=== PATIENT | male | born 1965 | race African-American/Black ===

== ENCOUNTER 2016-11-02 17:41 | Inpatient (IN) ==
[2016-11-02] MEDS ORDERED: ZOFRAN IV PRN (20:45)
[2016-11-02] MEDS ORDERED: VANCOMYCIN IV PER PHARMACY MISC SCH (21:00)
--- NOTE | 2016-11-02 21:24 | HISTORY AND PHYSICAL ---
PRIMARY CARE PHYSICIAN: None. PRIMARY GENERAL SURGEON: Remedios Ruano MD. CHIEF COMPLAINT: Patient was sent for direct admission for a right leg cellulitis. HISTORY OF PRESENT ILLNESS: This is a 51-year-old male with history diabetes, hypertension, and obesity who was sent as a direct admission by Dr. Remedios Ruano. Apparently patient started having a recurrence of this right leg cellulitis that started approximately 2-3 weeks ago and he was coming to the ER for checking it and last visit on 2016 he was recommended to see a surgeon. Dr. Ruano has seen this patient and he considered it necessary to admit this patient to the hospital. The patient denies any fever or chills. Patient reports that regarding diabetes and hypertension, he has not taken any medication for both conditions because he does not have a primary care physician, so basically he is not getting any treatment for those. Patient admitted for further evaluation and treatment. PAST MEDICAL HISTORY: 1. Diabetes mellitus type 2, untreated. 2. Hypertension. untreated 3. Morbid obesity. 4. Previous history of cellulitis to the same extremity and he has been seen 1 year ago here by Dr. Kimball. FAMILY HISTORY: Positive for hypertension, CVA, colon cancer, and heart attack. SOCIAL HISTORY: Patient is single. Lives with a roommate. He denies using illicit drugs, smoking tobacco, and he drinks alcohol socially. He works at [employer] here in [place]. ALLERGIES: He denies any allergies. MEDICATIONS: As mentioned before, he is not taking any medications for both chronic conditions mentioned above. REVIEW OF SYSTEMS: Eleven systems were reviewed and all symptoms are related to HPI. DISCHARGE PHYSICAL EXAMINATION: Vitals: Temperature 97.7 degrees, heart rate 90, respiratory rate 16, blood pressure 180/96, O2 saturation 100% on room air. General: This is a 51-year-old male, morbidly obese with BMI of 40.7 lying in bed, in no acute distress. HEENT: Head is normocephalic, atraumatic. Anicteric sclerae and pale conjunctivae. Mucous membranes moist. Neck: Supple. No JVD noted. No carotid bruits. No lymphadenopathy. No thyromegaly. Cardiovascular: S1, S2 heard. No murmurs, gallops, or rubs. Regular rate and rhythm. Respiratory: Clear bilaterally to auscultation. No work of breathing or using accessory muscles. Abdomen: Soft, nondistended, nontender to palpation. Bowel sounds present. No organomegaly. Extremities: There is no pitting edema on the left extremity but the right is markedly swollen with a wound covered by dressing. Peripheral pulses present in both legs. Neurological: Patient alert and oriented x3. Able to move 4 extremities. Cranial nerves II through XII grossly normal. LABORATORY DATA: Pending at time of dictation. ASSESSMENT AND PLAN: 1. Cellulitis of the right lower extremity. Patient will be started on vancomycin per pharmacy and Zosyn. Of course, we are going to readjust the doses of the medication according to the BMP and renal function. Dr. Tree Pena from Infectious Disease will be consulted. Also, Dr. Ruano sent this patient to the hospital. Apparently he is planning to do a surgical cleaning tomorrow. We will follow the recommendations. 2. Diabetes mellitus. That condition is untreated. We are going to check hemoglobin A1c and lipid panel and will treat this with the sliding scale insulin. 3. Hypertension. Blood pressure is not being treated. Patient's blood pressure on admission was 180 so we are going to start lisinopril 20 mg p.o. daily. I will also use hydralazine just in case blood pressure is 200 and above. 4. Right leg swelling. Of course this is because of cellulitis but just to check that this patient is not developing any blood clot, we are going to do a Doppler ultrasound. 5. Further recommendations to follow according to the clinical situation of the patient. cc: MD Flavio Najera MD MTDD
[2016-11-02 21:48] LABS: BASO% 0.4 % (0.0-0.8); EOS# 0.17 X1000 (0.0-0.7); EOS% 1.8 % (0.0-10.0); HEMATOCRIT 39.5 % (42.0-52.0); HEMOGLOBIN 12.2 g/dL (14.0-18.0); LYMPH# 2.61 X1000 (1.2-3.4); LYMPH% 27.7 % (20.5-51.1); MANUAL DIFF NEEDED? YES; MCH 23.6 PG (27-31); MCHC 30.9 g/dL (33-37); MCV 76.4 FL (81-99); MONO# 1.21 X1000 (0.11-0.59); MONO% 12.9 % (1.7-9.3); MPV 8.6 FL (7.4-10.4); NEUT% 57.2 % (42.2-75.2); PLT 459 X1000 (130-400); RBC 5.17 XMIL (4.7-6.1)
[2016-11-02 21:52] LABS: HEMOGLOBIN A1C 6.3 % (4.8-6.0)
[2016-11-02] MEDS ORDERED: VANCOMYCIN 2,000 MG in NS 500 ML IV ONE (22:00)
[2016-11-02 22:05] LABS: BASO 1 % (0-1); EOS 2 % (1-10); LYMPHS 27 % (21-51); MONO 13 % (1-9)
[2016-11-02] MEDS: PRINIVIL PO SCH (22:35)
[2016-11-02] MEDS: LOVENOX SUBQ SCH (22:36)
[2016-11-02] MEDS: NS 1,000 ML IV SCH (22:36)
[2016-11-02] MEDS: NORCO-5 PO PRN (22:36)
[2016-11-02] MEDS: ZOSYN 3.375 GM/NS 3.375 GM/50 ML IVPB IV SCH (22:37)
[2016-11-02 22:57] LABS: AGAP 12; BUN 17 mg/dL (8-22); CALCIUM 9.3 mg/dL (8.8-10.2); CHLORIDE 101 mmol/L (98-107); COSMO 277; POTASSIUM 4.2 mmol/L (3.5-5.1); SODIUM 138 mmol/L (136-145); TCO2 25 mmol/L (25-35)
[2016-11-02 23:15] LABS: ALBUMIN 3.5 g/dL (3.5-5.0); ALKALINE PHOSPHATASE 102 U/L (32-122); DIRECT BILIRUBIN < 0.20 mg/dL (0.00-0.20); GOT 17 U/L (10-34); GPT 20 U/L (10-44); TOTAL BILIRUBIN 0.26 mg/dL (0.20-1.00); TOTAL PROTEIN 7.9 g/dL (6.3-8.3)
[2016-11-02] MEDS: HUMALOG SUBQ SCH (23:15)
[2016-11-03] MEDS: ZOSYN 3.375 GM/NS 3.375 GM/50 ML IVPB IV SCH (03:38)
[2016-11-03] MEDS: HUMALOG SUBQ SCH ×4 (06:31→20:07)
[2016-11-03] MEDS: NORCO-5 PO PRN ×2 (06:45→23:47)
[2016-11-03 06:54] LABS: MANUAL DIFF NEEDED? NO
[2016-11-03 07:02] LABS: BASO% 0.4 % (0.0-0.8); EOS# 0.16 X1000 (0.0-0.7); EOS% 2.4 % (0.0-10.0); HEMOGLOBIN 11.7 g/dL (14.0-18.0); IMM GRAN# 0.02 X1000 (0.0-0.04); IMM GRAN% 0.3 % (0.0-0.5); LYMPH# 1.86 X1000 (1.2-3.4); LYMPH% 27.8 % (20.5-51.1); MCH 23.4 PG (27-31); MCHC 30.8 g/dL (33-37); MONO# 0.85 X1000 (0.11-0.59); MONO% 12.7 % (1.7-9.3); MPV 9.1 FL (7.4-10.4); NEUT% 56.4 % (42.2-75.2); PLT 448 X1000 (130-400)
[2016-11-03 07:17] LABS: AGAP 12; BUN 15 mg/dL (8-22); CALCIUM 8.7 mg/dL (8.8-10.2); CHLORIDE 103 mmol/L (98-107); COSMO 280; HDL 27 mg/dL (35-55); LDL 129 mg/dL; POTASSIUM 4.1 mmol/L (3.5-5.1); SODIUM 140 mmol/L (136-145); TCO2 25 mmol/L (25-35); TRIGLYCERIDES 111 mg/dL (39-160); VLDL 22 mg/dL
--- NOTE | 2016-11-03 07:37 | CONSULTATION ---
DATE OF CONSULTATION: 11/03/2016 CONCLUSION: The patient is admitted the hospital. He has a right leg cellulitis. Also, he appears on the right leg to have had an abscess in view of the fact that he told me that the right leg swelled and then it spontaneously drained sanguinopurulent fluid. RECOMMENDATIONS: I agree with putting the patient on vancomycin. I have substituted cefepime for Zosyn. Also, where the patient had fluid that came from his leg, I stuck a swab into that area. It went fairly deep into the leg but no where near the bone. I have sent the specimen for Gram stain and culture. DISCUSSION: This middle-aged gentleman, about 2-3 weeks ago, developed progressive swelling and erythema in his right leg, and 2-3 days ago the area spontaneously drained sanguinopurulent fluid. The patient has not been having fever or chills. He does not remember having any trauma to the right leg. PAST MEDICAL HISTORY/REVIEW OF SYSTEMS: Eyes and Ears: He denies difficulty hearing or seeing. Neck: No stiffness. Respiratory: No cough or shortness of breath. Cardiovascular: No chest pain or palpitations. GI: No nausea, vomiting, or diarrhea. Genitourinary: No dysuria or flank pain. Neurologic: No seizures. No motor or sensory loss. Bones, joints, muscles: See present illness. The remainder of the patient's review of systems was complete and was negative. PREVIOUS HOSPITALIZATIONS AND OPERATIONS: He has only been admitted for cellulitis of the right leg in the past. MEDICAL DISEASES: Positive for diabetes mellitus, hypertension, morbid obesity. INFECTIOUS DISEASE HISTORY: Positive for leg cellulitis. LABORATORY DATA AND X-RAY STUDIES: The patient's CBC shows a white count of 9410, hemoglobin 12.2, and platelet count 459,000. Creatinine is 1. GFR is greater than 60. Liver function studies are normal. FAMILY HISTORY: Positive for hypertension, stroke, colon cancer, and myocardial infarction. SOCIAL HISTORY: The patient is single. [place] He lives with a roommate. The patient denies using illicit drugs. He does not smoke, and he rarely drinks alcoholic beverages. He works at [employer]. ALLERGIES: He has no known drug allergies. MEDICATIONS: According to the chart, he is not taking any medicines at home. PHYSICAL EXAMINATION: VITAL SIGNS: Temperature is 98.4 degrees, pulse 78, respirations 16, blood pressure 179/95. GENERAL: This is an obese, middle-aged male who is in no acute distress. HEAD, EYES, EARS, NOSE, AND THROAT: He can hear my spoken words and see near objects. No drainage noted from the nose or ears. NECK: No meningismus. LUNGS clear to auscultation. CARDIOVASCULAR: Heart rate is regular. ABDOMEN soft and nontender. NEUROLOGIC: The patient move his extremities. There is no tremor. His sensation is intact to touch. His memory as regarding his medical history appears to be intact. Thank you for the consult. cc: MD Flavio Lord MD
[2016-11-03] MEDS ORDERED: VANCOMYCIN IV PER PHARMACY MISC SCH (08:00)
[2016-11-03] MEDS: PRINIVIL PO SCH (08:41)
[2016-11-03] MEDS: PRILOSEC PO SCH (08:41)
[2016-11-03] MEDS: MAXIPIME 2 GM/NS 2 GM/100 ML IVPB IV SCH ×2 (08:44→20:08)
--- NOTE | 2016-11-03 08:57 | Diag Imaging Result Document ---
PROCEDURE NAME: LOWER LEG-RIGHT - 11/03/2016 PLAIN RADIOGRAPH OF THE RIGHT LOWER LEG 4 VIEWS: COMPARISON: Right ankle radiograph dated 07/18/2014. FINDINGS: There is extensive degenerative arthropathy involving the knee with loss of joint space height and marginal osteophyte formation, most significant at the medial compartment. Otherwise, there is no discrete fracture, dislocation, or intrinsic osseous lesion. There is diffuse soft- tissue edema around the lower leg. IMPRESSION: 1. Degenerative arthropathy but no evidence of acute osseous abnormality. 2. Diffuse soft-tissue edema around the lower leg.
[2016-11-03] MEDS ORDERED: ZYVOX PO SCH (09:00)
--- NOTE | 2016-11-03 09:00 | PROGRESS NOTE ---
DATE: 11/03/2016 SUBJECTIVE: This patient is known to me, was seen in my clinic yesterday for a chronic, nonhealing wound. Concerned with infection of the right lateral leg. He has had multiple similar wounds on the right leg in the past. He has been in the ER multiple times and failed oral antibiotic regimens and has a persistent bleeding open wound of his right lateral leg. He has had venous ultrasounds x2 that have shown no clot in this leg, but the leg has chronic venous insufficiency and lymphedema type changes here. He was admitted to medicine service last night for medical optimization with antibiotics and plans for debridement today. PAST MEDICAL HISTORY: Diabetes. He has hypertension, obesity. PAST SURGICAL HISTORY: He has had multiple debridement's of the right lower extremity. MEDICATIONS: Negative for anticoagulants. Does not really see a doctor and does not really take anything for his diabetes. SOCIAL HISTORY: Occasional alcohol. No tobacco. Works at [employer]. PHYSICAL EXAM: Vital Signs: Temperature is 98.6, pulse 69, blood pressure 171/105, oxygen saturation 97% on room air. General: He is alert, no acute distress. HEENT: There is no scleral icterus. Abdomen: Soft, nontender. Extremities: Right lateral leg dressing is clean, dry, and intact. Yesterday, at office, there was a bleeding, open wound with some surrounding fluctuance and erythema, and chronic venous stasis, woody changes to his leg. LABS: Reviewed. White count had been normal at 6, hematocrit 28, platelets are 448. Creatinine 0.8, glucose is 99. Lower extremity x-ray shows the wound, but does not show any bony changes. HELEN showed normal ABIs greater than 1 bilaterally, normal wave forms. ASSESSMENT AND PLAN: This is a 41-year-old, obese, diabetic male. Has chronic venous insufficiency changes of right lower extremity and then chronic wound. He needs debridement of this wound to facilitate wound healing. We discussed risks, benefits, alternatives. He consents. There is a plan to go to the operating room today. Dr. Pena of Infectious Disease is following. He is on adequate antibiotics. Medically seems optimized as far as this goes. I suspect this is an evolving venous stasis type ulcer and will ultimately need Unna boot therapy pending today's findings, but will debride today as a first step in management of this. Continue to follow along. cc: Remedios Ruano MD
[2016-11-03] MEDS: VANCOMYCIN 2,000 MG in NS 500 ML IV SCH ×2 (10:19→23:47)
[2016-11-03] MEDS ORDERED: VANCOMYCIN 2,000 MG in NS 500 ML IV SCH (11:00)
--- NOTE | 2016-11-03 11:51 | PROGRESS NOTE ---
DATE: 11/03/2016 SUBJECTIVE: Mr. Alexandre is a 51-year-old who was admitted I believe for infected soft tissue of the right lower extremity with cellulitis and it will need some debridement, thought to have an abscess and the fact his right leg is swelling, spontaneously drained some serosanguineous fluid so the plan is for debridement. He is on vancomycin, substituted cefepime for Zosyn. He seems to be comfortable. He is a little bit sleepy. He said that he had not slept much this morning. PHYSICAL EXAMINATION: Vital Signs: Temperature 97.3 degrees, pulse 75, respirations 19, blood pressure 182/108. Blood pressure had been running a little bit high so we maybe make some adjustments. Lungs: Clear in all lung mccormack. Cardiovascular Examination: Regular rhythm and rate without murmur or S3. Abdomen: Soft. Skin: Is warm and dry. LAB: Work when he came in, white count 6690, hematocrit 38, platelet count 448,000. Sodium 140, potassium 4.1, chloride 103, bicarb 25, BUN 15, creatinine 0.8. Liver functions unremarkable. Lower extremity x-ray. ASSESSMENT AND PLAN: 1. Lower extremity soft tissue infection, nonhealing wound of right lateral lower leg, for debridement. He is on cefepime and vancomycin I believe at the present time. 2. We will follow his blood sugars. Hemoglobin A1c level was 6.3. Blood sugars have been 99 and 134. 3. Other comorbidities, has diabetes, has hypertension, morbid obesity. cc: Kali Rodney MD
[2016-11-03] MEDS ORDERED: FENTANYL ONE (13:00)
[2016-11-03] MEDS ORDERED: DIPRIVAN 1% ONE (13:00)
[2016-11-03] MEDS: DILAUDID ONE ×5 (13:19→13:58)
[2016-11-03] MEDS ORDERED: XYLOCAINE-MPF 2% ONE (13:29)
--- NOTE | 2016-11-03 13:38 | OPERATIVE NOTE ---
PROCEDURE DATE: 11/03/2016 PREOPERATIVE DIAGNOSIS: Right lateral lower leg wound. POSTOPERATIVE DIAGNOSIS: Right lateral lower leg wound. PROCEDURE PERFORMED: Excisional debridement of right lower lateral leg 8 x 4 cm right down to the level of tendon. COMPLICATION: None. ESTIMATED BLOOD LOSS: 10 mL. ANESTHESIA: General. SPECIMENS: 1. Excised tissue from right leg wound. 2. Culture of wound fluid. OPERATIVE INDICATION: This is a 51-year-old male diabetic obese with chronic venous insufficiency and lymphedema of right lower extremity. He has been going to the ER for the last several weeks with a wound to his right lower extremity. He had been treated with antibiotics and no improvement. He was seen in my office. We admitted him for IV antibiotics and medical workup yesterday with plans for excisional debridement today. OPERATIVE FINDINGS: There is some necrotic tissue overlying the wound. There is some purulence. This extended over a dimension of 8 x 4 cm in greatest dimension down to the level of the tendons of the ankle. OPERATIVE NOTE: Risks, benefits, alternatives discussed with the patient. He consented to the procedure. He was seen in the preoperative area and surgery to be performed was confirmed. Preoperatively the surgical site was marked. He was taken to the operating room , placed supine position. General anesthesia was induced scheduled antibiotics being administered. Right leg was prepped with Betadine solution, draped in usual fashion. Foot was excluded after time-out was performed. We all agreed on the side to be operated on. We identified the wound and a 10 blade scalpel excised the area of necrotic skin overlying this. Then encountered a pocket of pus that tracked cephalad. We opened this up longitudinally to facilitate drainage , excise back all necrotic tissue back to healthy bleeding tissue. There was visualized tendon at the base of wound but no periosteum or bone. We irrigated the wound and obtained hemostasis. No undrained pockets of collection of pus or necrosis noted. We did take cultures of the fluid that was expressed, packed the wound with saline gauze in the loose Kerlix and Harry wrap. Tolerated well. He was taken back to PACU in good condition. There is no family available to speak with. cc: Remedios Ruano MD [facility]
[2016-11-03] MEDS: PERIDEX MT SCH (20:08)
[2016-11-03] MEDS: LOVENOX SUBQ SCH (20:08)
[2016-11-03] MEDS: NS 1,000 ML IV SCH (23:46)
[2016-11-04] MEDS: NORCO-5 PO PRN ×4 (06:02→20:47)
[2016-11-04] MEDS: HUMALOG SUBQ SCH ×4 (06:04→20:21)
[2016-11-04 06:34] LABS: BASO% 0.6 % (0.0-0.8); EOS# 0.06 X1000 (0.0-0.7); EOS% 0.8 % (0.0-10.0); HEMATOCRIT 38.2 % (42.0-52.0); HEMOGLOBIN 11.9 g/dL (14.0-18.0); IMM GRAN# 0.02 X1000 (0.0-0.04); IMM GRAN% 0.3 % (0.0-0.5); LYMPH# 2.09 X1000 (1.2-3.4); LYMPH% 28.8 % (20.5-51.1); MANUAL DIFF NEEDED? YES; MCH 23.7 PG (27-31); MCHC 31.2 g/dL (33-37); MCV 76.1 FL (81-99); MONO# 0.79 X1000 (0.11-0.59); MONO% 10.9 % (1.7-9.3); NEUT% 58.6 % (42.2-75.2); PLT 472 X1000 (130-400); RBC 5.02 XMIL (4.7-6.1)
[2016-11-04 06:59] LABS: AGAP 11; BUN 11 mg/dL (8-22); CHLORIDE 102 mmol/L (98-107); COSMO 275; POTASSIUM 3.7 mmol/L (3.5-5.1); SODIUM 138 mmol/L (136-145); TCO2 25 mmol/L (25-35)
--- NOTE | 2016-11-04 07:09 | PROGRESS NOTE ---
DATE: 11/04/2016 SUBJECTIVE: Mr. Alexandre is feeling a little better. His right leg is throbbing. He did get some rest last night. PHYSICAL EXAMINATION: Vital Signs: Temperature 98.8 degrees, pulse 70, respirations 20, blood pressure 168/91. HEENT: Pupils are equal and round. CVP less than 6 cm. Lungs: Clear in all lung mccormack. Cardiovascular Examination: Regular rhythm and rate without murmur or S3. Is and Os: Urine output 5 L. LABS: Pending for this morning. ASSESSMENT AND PLAN: 1. Excision and debridement of right lower lateral leg, 8 x 4 cm, right down to the level of the tendon. Continue present antibiotics. 2. Diabetes mellitus type 2. Continue to follow sugars. Hemoglobin A1c was 6., so appears to have been under good control. 3. Blood pressure, well controlled in the past and at the present time. His blood pressure is running 160s to 180 systolic so we will continue to monitor. May increase his lisinopril to 20 mg twice a day. At the present time, he is on cefepime 2 g intravenous every 12 hours. He is on vancomycin which was started yesterday. Preliminary culture grew gram-positive. Awaiting identification. cc: Kali Rodney MD
[2016-11-04 08:01] LABS: EOS 2 % (1-10); LYMPHS 28 % (21-51); MONO 4 % (1-9)
[2016-11-04] MEDS: PRINIVIL PO SCH (08:32)
[2016-11-04] MEDS: MAXIPIME 2 GM/NS 2 GM/100 ML IVPB IV SCH ×2 (08:32→20:32)
[2016-11-04] MEDS: PRILOSEC PO SCH (08:32)
[2016-11-04] MEDS: PERIDEX MT SCH ×2 (08:32→20:36)
--- NOTE | 2016-11-04 08:36 | PROGRESS NOTE ---
DATE: 11/04/2016 SUBJECTIVE: Feels okay. No pain in his leg after surgery yesterday. OBJECTIVE: Vital Signs: Temperature is 98.8 degrees pulse 73, blood pressure 160/91, oxygen saturation 100% on 2 L nasal cannula. General: The patient is resting quietly , but says he feels okay. Cardiovascular: Normal rate, regular rhythm. Extremities: His dressing is clean, dry, and intact on his right lower extremity. Chronic venous stasis changes. LABS: His white count is normal at 7, hematocrit 38, creatinine 0.8, glucose 89. ASSESSMENT: A 51-year-old male with chronic wound and lymphedema in his right lower extremity. We debrided this yesterday and took cultures of fluid. Nothing is back yet. PLAN: Will continue local wound care today. Will evaluate with Wound RN and plan for possible wound VAC placement later today or tomorrow. I think he will be near ready for discharge home and I can follow him at the [facility] [place] for his ongoing wound management. Suspect ultimately this is related to his venous hypertension in his right lower extremity. No DVTs noted on this study recently, and he will most likely benefit from Unna boot compressive therapy, but right now for any closer observation of this wound, I will not start this at this time. cc: Remedios Ruano MD MTDDavid
--- NOTE | 2016-11-04 09:28 | PROGRESS NOTE ---
DATE: 11/04/2016 PRESENT ILLNESS: The patient is status post excisional debridement of a right leg wound that I think may have been an abscess, in which spontaneously drained a few days ago. MEDICATIONS: The patient is receiving both the cefepime and vancomycin. PHYSICAL EXAMINATION: Vital Signs: Temperature is 97.9 degrees, pulse 81, respirations 18, blood pressure 169/96. General: This is an obese, young male. He is in no acute distress. Lungs: Clear to auscultation. Cardiovascular: Regular heart rate. Abdomen: Soft and nontender. Extremities: The patient's right leg has a dressing around it. The dressing is intact. LAB AND X-RAY: The patient's creatinine is 0.8. GFR is greater than 60. CBC shows a white count of 7260, hemoglobin 11.9, and platelet count 472,000. ASSESSMENT AND PLAN: The patient is status post surgery on his leg wound. My plan is to continue the patient's current antibiotics consisting of vancomycin, cefepime pending culture results. COMORBIDITIES: The patient's comorbidities: He is obese and appears to have most likely some element of venous insufficiency or varicosities. Another comorbidity is diabetes mellitus, along with morbid obesity and probable venous insufficiency of the leg. cc: Tree Pena MD
[2016-11-04] MEDS: VANCOMYCIN 2,000 MG in NS 500 ML IV SCH (11:27)
[2016-11-04] MEDS: NS 1,000 ML IV SCH (16:36)
[2016-11-04] MEDS: APRESOLINE IV PRN (20:32)
[2016-11-04] MEDS: LOVENOX SUBQ SCH (20:36)
[2016-11-05] MEDS: NORCO-5 PO PRN ×4 (00:42→13:37)
[2016-11-05] MEDS: APRESOLINE IV PRN ×2 (04:30→13:38)
[2016-11-05 05:50] LABS: BASO% 0.5 % (0.0-0.8); EOS% 1.5 % (0.0-10.0); HEMATOCRIT 39.4 % (42.0-52.0); HEMOGLOBIN 12.4 g/dL (14.0-18.0); IMM GRAN# 0.02 X1000 (0.0-0.04); IMM GRAN% 0.3 % (0.0-0.5); LYMPH# 2.01 X1000 (1.2-3.4); LYMPH% 30.9 % (20.5-51.1); MANUAL DIFF NEEDED? NO; MCH 23.5 PG (27-31); MCHC 31.5 g/dL (33-37); MCV 74.6 FL (81-99); MONO# 0.75 X1000 (0.11-0.59); MONO% 11.5 % (1.7-9.3); MPV 8.8 FL (7.4-10.4); NEUT% 55.3 % (42.2-75.2); PLT 495 X1000 (130-400); RBC 5.28 XMIL (4.7-6.1)
[2016-11-05 06:02] LABS: AGAP 11; BUN 11 mg/dL (8-22); CALCIUM 9.1 mg/dL (8.8-10.2); CHLORIDE 101 mmol/L (98-107); COSMO 273; POTASSIUM 3.3 mmol/L (3.5-5.1); SODIUM 137 mmol/L (136-145); TCO2 25 mmol/L (25-35)
[2016-11-05] MEDS: HUMALOG SUBQ SCH ×2 (06:35→13:28)
[2016-11-05 07:55] VITALS: BP 150/78
[2016-11-05] MEDS: PRINIVIL PO SCH (08:44)
[2016-11-05] MEDS: PRILOSEC PO SCH (08:44)
[2016-11-05] MEDS: PERIDEX MT SCH (08:45)
[2016-11-05] MEDS: MAXIPIME 2 GM/NS 2 GM/100 ML IVPB IV SCH (08:58)
[2016-11-05] MEDS ORDERED: VANCOMYCIN IV SCH (11:00)
[2016-11-05] MEDS ORDERED: VANCOMYCIN 1,850 MG in NS 500 ML IV SCH (11:00)
[2016-11-05] MEDS ORDERED: NS IV SCH (11:00)
--- NOTE | 2016-11-05 11:32 | PROGRESS NOTE ---
DATE: 11/05/2016 PRESENT ILLNESS: The patient has a methicillin-resistant Staphylococcus aureus abscess of the leg. This has been drained and debrided by Dr. Ruano. MEDICATIONS: The patient currently is on vancomycin and cefepime. PHYSICAL EXAMINATION: Vital Signs: Temperature is 98.3 degrees, pulse 79, respirations 16, blood pressure 150/78. Lungs: Clear to auscultation. Cardiovascular: Regular heart rate. Abdomen: Soft without masses or tenderness. Extremities: The patient's leg has the VAC in place on it. There is no surrounding erythema. LABORATORY AND X-RAY: Culture from the leg grew methicillin-resistant Staphylococcus aureus. CBC today shows a white count of 6510, hemoglobin 12.4, and platelet count 495,000. Creatinine is 0.7. GFR is greater than 60. ASSESSMENT AND PLAN: The patient has the vacuum-assisted closure in place on his leg. It is my understanding he is going to be discharged today. I have written out for the patient doxycycline 100 mg p.o. every 12 hours for 15 days, number 30 tablets. The patient will be followed by Dr. Ruano, who will be seeing him as an outpatient in the [facility]. I have discontinued cefepime today. I am available to see the patient on an as needed basis. I have printed the patient's prescription for doxycycline and put it in his chart. I am able to see the patient on an as needed basis. I am signing off now. COMORBIDITY: Obesity with varicose veins and leg edema. cc: Tree Pena MD MTDDavid
[2016-11-05] MEDS ORDERED: KLOR-CON PO ONE (11:43)
[2016-11-05] MEDS ORDERED: APRESOLINE PO SCH (13:00)
--- NOTE | 2016-11-05 13:55 | PROGRESS NOTE ---
DATE: 11/05/2016 SUBJECTIVE: Feels well. Wound VAC is in place. No issues. No pain. OBJECTIVE: Vital signs: T is 98.3 degrees, pulse 89, blood pressure 150/78, oxygen saturation 100% on room air. General: He is alert. Extremities: No cellulitis in his leg. Wound VAC is in place. LABS: White count 5, hematocrit 39. Creatinine 0.7, glucose 90. ASSESSMENT AND PLAN: This is a 51-year-old, obese, diabetic male with lymphedema chronically in his leg that presents with a new wound. Cultures are growing Staph aureus. Dr. Pena has seen him and plans to discharge him on oral antibiotics. He has a wound VAC. I can see him back in 2 weeks. We will plan at that point if the wound has begun granulating to place an Unna boot to facilitate ongoing healing. cc: Remedios Ruano MD
[2016-11-05] MEDS ORDERED: GLUCOPHAGE PO SCH (17:00)
[2016-11-05] MEDS ORDERED: COREG PO SCH (21:00)
--- NOTE | 2016-11-08 07:45 | VASCULAR LAB ---
PROCEDURE NAME: Arterial Bilateral Legs - 11/03/2016 REFERRING PHYSICIAN: Remedios Ruano MD READING PHYSICIAN: Quique Dubon MD BACKBREAKER: Reema. INDICATION: Nonhealing right leg ulcer. FINDINGS: The pulse volume waveforms show excellent pulsatile flow throughout both lower extremities. Segmental pressures: Right brachial 177, high thigh 207, low thigh 194, popliteal 207, dorsalis pedis 196, posterior tibial 178, toe pressure 125, DIMITRY 1.1; left brachial pressure 165, high thigh 193, low thigh 167, popliteal 221, dorsalis pedis 208, posterior tibial 197, toe pressure 126, DIMITRY 1.2. INTERPRETATION: Normal lower extremity arterial study. cc: MD Remedios Foreman MD
--- NOTE | 2016-11-11 09:08 | DISCHARGE SUMMARY ---
ADMISSION DATE: 11/02/2016 DISCHARGE DATE: 11/05/2016 FINAL DISCHARGE DIAGNOSES: 1. Methicillin-resistant Staphylococcus aureus of the right lateral lower leg, status post excisional debridement. 2. Diabetes mellitus type 2, uncontrolled. 3. Hypertension. 4. Morbid obesity. CONSULTATIONS REQUESTED DURING THIS HOSPITAL STAY: 1. General surgery consultation with Dr. Ruano. 2. Infectious disease consultation with Dr. Pena. PROCEDURES PERFORMED DURING THIS HOSPITAL STAY: Excisional debridement of the right lower lateral leg down to the level of the tendon. HOSPITAL COURSE: Mr. Alexandre is a 51-year-old male with a history of multiple medical problems who presented to the ER with a chief complaint of a right leg infection. The patient was sent as a direct admission from Dr. Ruano's office. Cultures were obtained and the patient was started on broad-spectrum antibiotics. Also, Dr. Pena was consulted for antibiotic recommendations. A culture prior to debridement of Staphylococcus aureus. The patient was taken to the OR on November 03 for excisional debridement to the tendon. The specimen was cultured and eventually grew out MRSA. The patient's antibiotics were adjusted based on the culture. It was decided that the patient would benefit from a wound VAC and that was placed while the patient was hospitalized. It was recommended by Dr. Pena that the patient continue on doxycycline 100 mg p.o. every 12 hours for 15 days. The patient will also follow up with Dr. Ruano for further wound care instructions. DISCHARGE MEDICATIONS: 1. Hydralazine 25 mg p.o. every 8 hours. 2. Lisinopril 20 mg p.o. daily. 3. Metformin 500 mg p.o. twice a day with meals. 4. Doxycycline 100 mg p.o. every 12 hours x15 days. 5. Coreg 6.25 mg oral every 12 hours. 6. Tramadol 50 mg p.o. 4 times a day p.r.n. for pain. DISCHARGE DIET: An 1800, ADA diet. ACTIVITY: As tolerated. FOLLOWUP INSTRUCTIONS: The patient will need to follow up with Dr. Ruano as scheduled by his clinic. cc: Dennise Li MD
== END 2016-11-05 17:20 | disposition home health service (06) ==
LOC: DIRADM → SUPCPDRO 17:41 → SUATTDRO 17:41 → OBSVTOIN 17:41 → 4N 18:26
PROVIDERS: ATTEND Internal Medicine